=== PATIENT | female | born 1945 | race Caucasian/White ===

== ENCOUNTER 2016-09-28 10:05 | Inpatient (IN) | payer MEDICARE, BC ==
[~2016-09-28] VITALS: Ht 152.4 cm; Wt 74.0 kg
[~2016-09-28 10:05] MED LIST: ALPRAZOLAM0.25 MG PO; ALPRAZOLAM0.5 MG PO; ASPIRIN EC81 MG PO; B12-ACTIVE1 MG PO; CALCIUM 600 +600 MG PO; CIMETIDINE400 MG PO; CYANOCOBALAM1000 MC1 IM; FISH OIL1000 MG PO; HYDROCHLOROT25 MG PO; HYDROXYZ HCL25 MG OR; ISOSORB DIN10 MG PO; LIPITOR80 MG PO; LISINOP/HCTZ1 TA2 PO; LISINOPRIL20 MG PO; LORAZEPAM1 MG PO; METOPROL TAR25 MG PO; NEURONTIN300 MG PO; PLAVIX75 MG PO; PREDNISONE10 MG PO; PROLIA60 MG/ML SC; SIMVASTATIN40 MG PO; SINEQUAN10 MG OR; TRAZODONE HCL50 MG PO; TRIAMCINOLON0.11 EX
--- NOTE | 2016-09-28 10:10 | NUR ---
PT ARRIVES IN STABLE CONDITION VIA EMS FROM [facility] HOLDING PILLOW OVER SURGICAL SITE, C/O MIDSTERNAL CHEST PAIN THAT STARTED DURING PHYSICAL THERAPY THIS MORNING. DR GREEN TO BEDSIDE TO EVALUATE.
[2016-09-28] MEDS ORDERED: TYLENOL 500MG TAB PO (10:24)
[2016-09-28] MEDS ORDERED: ALDACTONE25 MG PO (10:24)
[2016-09-28] MEDS ORDERED: BISACODYL10 M1 RE (10:25)
[2016-09-28] MEDS ORDERED: [UNRECOGNIZED DRUG - CODE] PO (10:25)
[2016-09-28] MEDS ORDERED: COREG3.125 MG PO (10:25)
[2016-09-28] MEDS ORDERED: METFORMIN500 MG PO (10:26)
[2016-09-28] MEDS ORDERED: LASIX 20 MG20 MG/TAB PO (10:26)
[2016-09-28] MEDS ORDERED: ISOSORB DIN10 MG PO (10:26)
[2016-09-28] MEDS ORDERED: PLAVIX75 MG PO (10:27)
[2016-09-28] MEDS ORDERED: MILK OF MAG30 ML/UDC PO (10:27)
[2016-09-28] MEDS ORDERED: POT CHLORIDE10 ME5 PO (10:28)
[2016-09-28] MEDS ORDERED: PROTONIX40 M2 PO (10:28)
[2016-09-28] MEDS ORDERED: TRAMADOL HCL50 MG PO (10:28)
[2016-09-28 10:33] LABS: HEMATOCRIT 34.9 % (37.0-47.0); HEMOGLOBIN 11.1 g/dl (12.0-16.0); IMMATURE GRANULOCYTES 0.6 % (0.0-1.0); MEAN CELL VOLUME 83.7 fL CALC (80.0-100.0); MEAN CORPUSCULAR HGB 26.6 pG CALC (26.0-32.0); MEAN CORPUSCULAR HGB CONC 31.8 g/L CALC (32.0-36.0); NEUT# 9.93 thou/uL (2.00-7.15); RED BLOOD COUNT 4.17 mill/uL (4.20-5.60); RED CELL DISTRI WIDTH 14.3 % (11.5-15.5)
[2016-09-28 10:50] LABS: ALBUMIN 4.3 g/dL (3.2-5.0); ALKALINE PHOSPHATASE 107 u/l (38-126); AMYLASE 67 u/l (30-110); ANION GAP 19 (6-22 (CALC)); BILIRUBIN, TOTAL 0.5 mg/dL (0.0-1.4); BUN 34 mg/dL (8-23); BUN/CREATININE RATIO 39 (12-20 (CALC)); CALCIUM 9.7 mg/dL (8.4-10.2); CARBON DIOXIDE 25 mmol/l (22-30); CHLORIDE 98 mmol/l (95-108); CREATININE 0.9 mg/dL (0.5-1.0); GFR > 60 ML/MIN (>=60 (CALC)); GFR FOR AFR.AMER. > 60 ML/MIN (>=60 (CALC)); GLUCOSE 129 mg/dL (82-115); LIPASE 64 u/l (23-300); POTASSIUM 4.6 mmol/l (3.5-5.1); SGOT/AST 26 u/l (9-36); SGPT/ALT 24 u/l (11-66); SODIUM 137 mmol/l (137-146); TOTAL PROTEIN 7.8 g/dL (6.3-8.2)
[2016-09-28 11:01] LABS: PROTHROMBIN TIME 10.7 SECONDS (9.0-12.5)
[2016-09-28 11:02] LABS: MYOGLOBIN 26 ng/mL (0 - 62)
--- NOTE | 2016-09-28 11:30 | NUR ---
PT RESTING ONS STRETCHER, HOLDING PILLOW ON SURGICAL SITE. DENIES PAIN AT THIS TIME. FAMILY AT BEDSIDE, CALL LIGHT IN REACH.
--- NOTE | 2016-09-28 12:30 | NUR ---
PT RESTING ON STRETCHER, STATES, "I FEEL MUCH BETTER NOW THAN WHEN I CAME IN"
--- NOTE | 2016-09-28 14:09 | NUR ---
SECOND TROPONIN OBTAINED ORDERED.
--- NOTE | 2016-09-28 15:45 | NUR ---
PT RESTING ON STRETCHER, ADJUSTED POSITION PER REQUEST FOR COMFORT. PT ADVISED TO EXTENDED WAIT TIME ON LAB RESULTS. VERBALZIES UNDERSTANDING. CALL LIGHT IN REACH.
--- NOTE | 2016-09-28 16:30 | NUR ---
PT DENIES COMPLAINTS. CALL LIGHT IN REACH.
--- NOTE | 2016-09-28 17:00 | NUR ---
REPORT PROVIDED TO CARMEN ANDERSON. TRANSFER PENDING BUSY ER.
--- NOTE | 2016-09-28 17:35 | NUR ---
PT ARRIVED VIA STRETCHER AND ONE PERSON ASSISTANCE FROM THE ER. PT AMBULATORY TO SCALE AND BS CHAIR. PT VSS ARE HYPOTENSIVE, MD ON UNIT AND NOTIFIED, NITRO PATCH REMOVED. ASSESSMENT AND HISTORY PERFORMED. BELONGINGS GONE OVER, FALL CONTRACT SIGNED. CALL LIGHT WITHIN REACH. RIGHTS, RESPONSIBILITIES GONE OVER.
--- NOTE | 2016-09-28 17:40 | NUR ---
PT TRANSFERRED TO ICU IN STABLE CONDITION VIA STRETCHER.
[2016-09-28 17:45] VITALS: BP 82/62
[2016-09-28 18:00] VITALS: BP 118/70
--- NOTE | 2016-09-28 18:50 | NUR ---
RECEIVED REPORT FROM AMBAR HAMLIN RN. ASSUMED PT CARE. INTRODUCED TO PT, C/O DULL PAIN IN UPPER BACK AND BILAT SHOULDER BLADES; IS REQUESTING XANAX; WILL MEDICATE PER DR ORDERS. CALL PATE IS WITHIN REACH.
[2016-09-28 20:00] VITALS: BP 92/51
[2016-09-28 21:00] VITALS: BP 93/51
--- NOTE | 2016-09-28 21:08 | NUR ---
PT RESTING IN BED WATCHING TV; DENIES PAIN OR NEEDS AT THIS TIME; RESP ARE EVEN AND UNLABORED; ACCU CHECK 108; SLIGHTLY HYPOTENSIVE; HR 81, AFEBRILE; IVF INFUSING AT RX @ 60 ML/HR WITHOUT DIFFICULTY; CALL PATE WITHIN REACH WILL CONTINUE TO MONITOR.
--- NOTE | 2016-09-28 21:59 | NUR ---
TEST DECK SUPERVISOR IN PT ROOM DRAWING TROPONIN BLOOD SAMPLE. PT DENIES ANY NEEDS OR PAIN STATES "I FEEL COMFORTABLE NOW."
[2016-09-29] VITALS (12 sets, daily range): BP systolic 71–146; BP diastolic 42–67
--- NOTE | 2016-09-29 00:22 | NUR ---
PT IS RESTING IN BED WITH EYES CLOSED; ALERT AND ORIENTED X3; DENIES PAIN OR NEEDS AT THIS TIME; VOICES NO COMPLAINTS; AFEBRILE; BP 89/49 AT THIS TIME; SKIN IS WARM AND DRY; DENIES DIZZINESS OR LIGHTHEADEDNESS; CALL PATE WITHIN REACH, WILL CONTINUE TO MONITOR.
--- NOTE | 2016-09-29 01:00 | NUR ---
RT IN PT ROOM FOR ECG.
--- NOTE | 2016-09-29 02:05 | NUR ---
PT APPEARS TO BE SLEEPING WITH EYES CLOSED; VOICES NO COMPLAINTS; RESP ARE EVEN AND UNLABORED; SKIN IS WARM AND DRY; AFEBRILE; BP 83/44 AT THIS TIME; CALL PATE IS WITHIN REACH; WILL CONTINUE TO MONITOR.
--- NOTE | 2016-09-29 04:10 | NUR ---
ASSISTED PT OOB TO BSC; VOIDED 300 ML OF CLEAR YELLOW URINE; PT TOLERATED ACTIVITY WELL; DENIES ANY PAIN, DIZZINESS/HEADEDNESS AT THIS TIME; AFEBRILE; BP 71/47, ELEVATED BED AT FEET; RESP EVEN AND UNLABORED; DENIES OTHER NEEDS; CALL PATE IS WITHIN REACH.
[2016-09-29 04:39] LABS: HEMATOCRIT 33.2 % (37.0-47.0); HEMOGLOBIN 10.4 g/dl (12.0-16.0); IMMATURE GRANULOCYTES 0.4 % (0.0-1.0); MEAN CELL VOLUME 83.6 fL CALC (80.0-100.0); MEAN CORPUSCULAR HGB 26.2 pG CALC (26.0-32.0); MEAN CORPUSCULAR HGB CONC 31.3 g/L CALC (32.0-36.0); NEUT# 5.45 thou/uL (2.00-7.15); RED BLOOD COUNT 3.97 mill/uL (4.20-5.60); RED CELL DISTRI WIDTH 14.1 % (11.5-15.5)
[2016-09-29 04:56] LABS: ALBUMIN 3.9 g/dL (3.2-5.0); ALKALINE PHOSPHATASE 94 u/l (38-126); ANION GAP 14 (6-22 (CALC)); BILIRUBIN, TOTAL 0.3 mg/dL (0.0-1.4); BUN 34 mg/dL (8-23); BUN/CREATININE RATIO 38 (12-20 (CALC)); CALCIUM 8.9 mg/dL (8.4-10.2); CALCULATED LDLCHOLESTEROL 64 mg/dL (62-129 (CALC)); CARBON DIOXIDE 28 mmol/l (22-30); CHLORIDE 100 mmol/l (95-108); CREATININE 0.9 mg/dL (0.5-1.0); GFR > 60 ML/MIN (>=60 (CALC)); GFR FOR AFR.AMER. > 60 ML/MIN (>=60 (CALC)); GLUCOSE 95 mg/dL (82-115); HDL CHOLESTEROL 35 mg/dL (>=40); POTASSIUM 4.6 mmol/l (3.5-5.1); SGOT/AST 29 u/l (9-36); SGPT/ALT 25 u/l (11-66); SODIUM 138 mmol/l (137-146); TOTAL CHOLESTEROL 130 mg/dl (0-199); TOTAL PROTEIN 7.1 g/dL (6.3-8.2); TOTAL TRIGLYCERIDES 155 mg/dl (30-149); VLDL CHOLESTROL 31 mg/dl (0-48 (CALC))
--- NOTE | 2016-09-29 05:15 | NUR ---
NOTIFIED DR. NICHOLS ABOUT PT ELEVATED TROPONIN; ADVICED TO HOLD THE ALDACTONE; LASIX, NITROPATCH AND COREG.
[2016-09-29 06:42] LABS: URINE BILIRUBIN - DIPSTICK NEGATIVE (NEGATIVE); URINE BLOOD DIPSTICK NEGATIVE (NEGATIVE); URINE CLARITY SLIGHT CLOUDY; URINE COLOR YELLOW; URINE GLUCOSE - DIPSTICK NEGATIVE (NEGATIVE); URINE KETONE NEGATIVE (NEGATIVE); URINE LEUK ESTERASE NEGATIVE (NEGATIVE); URINE NITRITE - DIPSTICK NEGATIVE (Negative); URINE PH 5.5 (4.5-8.0); URINE PROTEIN - DIPSTICK NEGATIVE (NEG-TRACE); URINE UROBILINOGEN - DIPSTICK 0.2 E.U./dL (0.2)
--- NOTE | 2016-09-29 07:15 | NUR ---
PT ALERT AND ORIENTED RESTING IN BED, HAD CXR DONE THIS AM, AM ASSESSMENT COMPLETED SEE INTERVENTIONS, PT HAS HEART PILLOW FROM PREVIOUS SURGERY AT BEDSIDE FOR SUPPORT WITH COUGH, MIDLINE STERNAL INCISION INTACT, WELL APPROXIMATED AND WELL HEALING WITH NO S/S OF INFECTION NOTED, LUNGS ARE CLEAR WITH NO SOB OR DISTRESS NOTED, PULSE OX 98% ON ROOM AIR, SAFETY MEASURES REINFORCED, NO COMPLAINTS OF PAIN, CALL PATE WIHTINR EACH, ENCOURAGED TO CALL FOR ANY NEEDED ASSISTANCE.
--- NOTE | 2016-09-29 07:35 | NUR ---
SET UP ASSIST PROVIDED FOR AM MEAL, BILATERAL LE ELEVATED ON PILLOWS PER VERBAL ORDERED , PT REMAINS ASYMPTOMATICALLY HYPOTENSIVE, IVF CONTINUE AT PRESCRIBED RATE, WILL CONTINUE TO MONITOR.
--- NOTE | 2016-09-29 09:15 | NUR ---
pt oob to bsc with stand by assist and toelrated activity well and provides own jasmeet care, back to bed with same assist, call agee within reach, will continue to monitor.
--- NOTE | 2016-09-29 10:35 | NUR ---
PT OOB TO BSC WITH STAND BY ASSIST, TOLERATES ACTIVITY WELL, CONTINENT OF URINE WITHOUT INCIDENT AND PROVIDES FANTA CARE INDEPENDENTLY, BACK TO BED AND REPOSITIONED FOR COMFORT, CALL PATE WITHIN REACH, WILL CONTINUE TO MONITOR.
--- NOTE | 2016-09-29 12:00 | NUR ---
PT ASSISTED OOB TO BSC, CONTINENT OF URINE, PROVIDES OWN FANTA CARE THEN INTO RECLINER AT BEDSIDE FOR AFTERNOON MEAL, PT TOLERATES ACTIVITY WELL WITH NO SOB OR DISTRESS NOTED, CALL PATE WITHIN REACH, WILL CONTINUE TO MONITOR.
--- NOTE | 2016-09-29 13:27 | NUR ---
PT UP TO BSC, CONTINENTN OF URINE AND SCANT BM, PT PROVIDED OWN FANTA CARE, BACK TO RECLINER AT BEDSIDE, CALL PATE WITHIN REACH, BP REMAINS IMPROVED, WILL CONTINUE TO MONITOR.
--- NOTE | 2016-09-29 13:55 | NUR ---
PT AMBULATED IN HALLWAY WITH STEADY GAIT, BACKT O BED AT THIS TIME, TOELRATED ACTIVITY WELL, CALL PATE WITHIN REACH, WILL CONTINUE TO MONITOR.
--- NOTE | 2016-09-29 15:07 | NUR ---
PT OOB TO BSC WITH STAND BY ASSIST, CALL PATE WITHIN REACH
--- NOTE | 2016-09-29 15:14 | NUR ---
PT AMBULATED AGAINA IN HALLWAYS, TOLERATED ACTIVIYT WELL, BACK TO BED TOLERATED ACTIVITY WELL, CALL PATE WITHIN REACH, WILL CONTINUE TO MONITOR.
--- NOTE | 2016-09-29 15:40 | NUR ---
PT TO ULATRASOUND VIA FOR ECHO ORDERED, PT AMBULATED AOUT OF ROOM TO WHEELCHAIR.
--- NOTE | 2016-09-29 16:53 | NUR ---
PT BACK FROM RADIOLOGY EARLIER AND CURRENTLY SITTING UP IN CHAIR AT BEDSIDE, AWAITING PM MEAL, TOLERATES ACTIVITY WELL CALL PATE WITHIN REACH, WILL CONTINUE TO MONITOR.
--- NOTE | 2016-09-29 18:20 | NUR ---
PT BACK TO BED ATE MINIMAL AMOUNT OF PM MEAL, IVF STOPPED PER VERBAL ORDER , POSITIONED FOR COMFORT CALL [facility], WILL CONTINUE TO MONITOR.
--- NOTE | 2016-09-29 19:10 | NUR ---
awake. no acute distress. power supply engineer shows sinus rhythm ivcd pvcs. healing chest incision. steristrips intact. #20 rac saline lock. po fluids taken well. voids per bsc. fall precautions cont.
--- NOTE | 2016-09-29 19:15 | NUR ---
percocet 5 & xanax 0.5mg po per request for pain @ anxiety.
--- NOTE | 2016-09-29 19:30 | NUR ---
requested to bathe self. am care given per self.
--- NOTE | 2016-09-29 19:50 | NUR ---
amb x1 assist to hallway. walked residential [facility] floor. talked CONSTANTLY. no sob. assisted to bed.
--- NOTE | 2016-09-29 22:00 | NUR ---
eyes closed. no distress. material requirements planning manager shows sinus rhythm ivcd.
--- NOTE | 2016-09-30 00:05 | NUR ---
eyes closed. no apparent distress. monitor shows sinus rhythm ivcd.
[2016-09-30 00:15] VITALS: BP 90/52
--- NOTE | 2016-09-30 01:30 | NUR ---
up to bsc. kevin well. denies chest pain.
[2016-09-30 02:00] VITALS: BP 95/45
--- NOTE | 2016-09-30 04:00 | NUR ---
awake. denies c/o. to xray per wc for 2v cxr.
--- NOTE | 2016-09-30 04:10 | NUR ---
returned from [employer].
[2016-09-30 04:15] VITALS: BP 103/53
--- NOTE | 2016-09-30 04:15 | NUR ---
lab here. blood drawn.
[2016-09-30 05:07] LABS: HEMATOCRIT 36.2 % (37.0-47.0); HEMOGLOBIN 11.1 g/dl (12.0-16.0); IMMATURE GRANULOCYTES 0.5 % (0.0-1.0); MEAN CELL VOLUME 84.4 fL CALC (80.0-100.0); MEAN CORPUSCULAR HGB 25.9 pG CALC (26.0-32.0); MEAN CORPUSCULAR HGB CONC 30.7 g/L CALC (32.0-36.0); NEUT# 8.2 thou/uL (2.00-7.15); RED BLOOD COUNT 4.29 mill/uL (4.20-5.60)
--- NOTE | 2016-09-30 05:10 | NUR ---
up to [facility]. voided well. denies c/o.
--- NOTE | 2016-09-30 05:30 | NUR ---
rt here. ekg obtained.
--- NOTE | 2016-09-30 06:00 | NUR ---
lab here. blood redrawn.
[2016-09-30 06:18] LABS: ANION GAP 16 (6-22 (CALC)); BUN 18 mg/dL (8-23); BUN/CREATININE RATIO 26 (12-20 (CALC)); CALCIUM 8.9 mg/dL (8.4-10.2); CARBON DIOXIDE 23 mmol/l (22-30); CHLORIDE 103 mmol/l (95-108); CREATININE 0.7 mg/dL (0.5-1.0); GFR > 60 ML/MIN (>=60 (CALC)); GFR FOR AFR.AMER. > 60 ML/MIN (>=60 (CALC)); GLUCOSE 87 mg/dL (82-115); SODIUM 138 mmol/l (137-146)
--- NOTE | 2016-09-30 07:00 | NUR ---
PT A/O X3 DENIES PAIN; ACCU CHECK 80; CALL PATE WITHIN REACH; WILL CONTINUE TO MONITOR.
--- NOTE | 2016-09-30 07:40 | NUR ---
PT ASSISTED TO CHAIR AND ASSISTED WITH BREAKFAST SET UP; DENIES PAIN; CALL PATE WITHIN REACH; WILL CONTINUE TO MONITOR.
[2016-09-30 08:00] VITALS: BP 134/59
[2016-09-30] MEDS ORDERED: LIPITOR80 MG PO (08:35)
[2016-09-30] MEDS ORDERED: ISOSORB DIN10 MG PO (08:35)
[2016-09-30] MEDS ORDERED: PLAVIX75 MG PO (08:35)
[2016-09-30] MEDS ORDERED: COREG3.125 MG PO (08:35)
[2016-09-30] MEDS ORDERED: ALPRAZOLAM0.25 MG PO (08:36)
[2016-09-30] MEDS ORDERED: TYLENOL 500MG TAB PO (08:36)
[2016-09-30] MEDS ORDERED: ASPIRIN EC81 MG PO (08:36)
[2016-09-30] MEDS ORDERED: TRAMADOL HCL50 MG PO (08:36)
[2016-09-30] MEDS ORDERED: CALCIUM 600 +600 MG PO (08:37)
[2016-09-30] MEDS ORDERED: LASIX 20 MG20 MG/TAB PO (08:37)
[2016-09-30] MEDS ORDERED: METFORMIN500 MG PO (08:38)
[2016-09-30] MEDS ORDERED: PROTONIX40 M2 PO (08:38)
[2016-09-30] MEDS ORDERED: BISACODYL10 M1 RE (08:38)
[2016-09-30] MEDS ORDERED: [UNRECOGNIZED DRUG - CODE] PO (08:38)
--- NOTE | 2016-09-30 09:13 | NUR ---
DR. NICHOLS IN TO SEE PT; PLAN OF CARE DISCUSSED
--- NOTE | 2016-09-30 10:00 | NUR ---
PT SITTING ON SIDE OF BED; MEDICATED FOR C/O LOWER BACK PAIN 5/10 AND ANXIETY; CALL PATE WITHIN REACH; WILL CONTINUE TO MONITOR.
--- NOTE | 2016-09-30 12:15 | NUR ---
Discharge instructions given. Patient verbalizes understanding of same. Discharged in stable condition via Wheelchair to [facility] with staff. All belongings sent with pt.
== END 2016-09-30 12:15 | DRG 313 ==
LOC: ENPENDDIS → ED 10:05 → ED-I 16:09 → ED 16:23 → ICU 16:24
PROVIDERS: Emergency Medicine; ADMIT Internal Medicine Geriatric Medicine; ATTEND Internal Medicine Geriatric Medicine
DX: R07.89 Other chest pain (principal); I25.10 Atherosclerotic heart disease of native coronary artery without angina pectoris; I11.0 Hypertensive heart disease with heart failure; I50.9 Heart failure, unspecified; J44.9 Chronic obstructive pulmonary disease, unspecified; E78.5 Hyperlipidemia, unspecified; F41.9 Anxiety disorder, unspecified; F17.210 Nicotine dependence, cigarettes, uncomplicated; M19.90 Unspecified osteoarthritis, unspecified site; E11.9 Type 2 diabetes mellitus without complications; I44.7 Left bundle-branch block, unspecified; R74.8 Abnormal levels of other serum enzymes; Z95.5 Presence of coronary angioplasty implant and graft; Z95.1 Presence of aortocoronary bypass graft

== ENCOUNTER → 2018-08-29 | Outpatient (REF) | payer MEDICARE, BC ==
[~2018-08-29] MED LIST changes: +ALDACTONE25 MG PO; +BISACODYL10 M1 RE; +COREG3.125 MG PO; +LASIX 20 MG20 MG/TAB PO; +METFORMIN500 MG PO; +MILK OF MAG30 ML/UDC PO; +POT CHLORIDE10 ME5 PO; +PROTONIX40 M2 PO; +TRAMADOL HCL50 MG PO; +TYLENOL 500MG TAB PO; +[UNRECOGNIZED DRUG - CODE] PO
[2018-08-29 15:05] LABS: ALBUMIN 3.9 g/dL (3.2-5.0); ALKALINE PHOSPHATASE 54 u/l (38-126); ANION GAP 14 (6-22 (CALC)); BILIRUBIN, TOTAL 0.3 mg/dL (0.0-1.4); BUN 18 mg/dL (8-23); BUN/CREATININE RATIO 24 (12-20 (CALC)); CARBON DIOXIDE 27 mmol/l (22-30); CHLORIDE 105 mmol/l (95-108); CREATININE 0.8 mg/dL (0.5-1.0); GFR > 60 ML/MIN (>=60 (CALC)); GFR FOR AFR.AMER. > 60 ML/MIN (>=60 (CALC)); POTASSIUM 4.4 mmol/l (3.5-5.1); SGOT/AST 26 u/l (9-36); SODIUM 143 mmol/l (137-146); TOTAL PROTEIN 6.6 g/dL (6.3-8.2)
== END | disposition home or self-care (01) ==
LOC: LAB 12:56
PROVIDERS: ATTEND Nurse Practitioner Family
DX: R74.0 Nonspecific elevation of levels of transaminase and lactic acid dehydrogenase [LDH] (principal)

== ENCOUNTER 2019-02-16 08:37 | Day surgery (SDC) | payer MEDICARE, BC ==
[~2019-02-16 08:37] MED LIST changes: +ATORVASTATIN CA80 MG PO; +CARVEDILOL3.125 MG PO; +CLOPIDOGREL75 MG PO; +ISORDIL10 MG PO; +LASIX20 MG PO; +SG ASA LOW81 M1 PO; +TIZANIDINE HCL2 MG PO
[2019-02-16 11:35] VITALS: BP 138/72
== END 2019-02-16 12:05 | disposition home or self-care (01) ==
LOC: ENDO 08:37 → ORM 09:35 → ENDO 10:30 → ORM 19:45
PROVIDERS: ATTEND Internal Medicine Gastroenterology
PROC: 0DBP8ZX Excision of Rectum, Via Natural or Artificial Opening Endoscopic, Diagnostic (ICD-10-PCS; principal; 2019-02-16)
PROC: 0DBN8ZX Excision of Sigmoid Colon, Via Natural or Artificial Opening Endoscopic, Diagnostic (ICD-10-PCS; 2019-02-16)
PROC: 0DB58ZX Excision of Esophagus, Via Natural or Artificial Opening Endoscopic, Diagnostic (ICD-10-PCS; 2019-02-16)
PROC: 0DB78ZX Excision of Stomach, Pylorus, Via Natural or Artificial Opening Endoscopic, Diagnostic (ICD-10-PCS; 2019-02-16)
DX: D12.5 Benign neoplasm of sigmoid colon (principal); D12.8 Benign neoplasm of rectum; K64.4 Residual hemorrhoidal skin tags; K64.8 Other hemorrhoids; K57.30 Diverticulosis of large intestine without perforation or abscess without bleeding; K59.09 Other constipation; K22.70 Barrett's esophagus without dysplasia; K29.50 Unspecified chronic gastritis without bleeding; K25.9 Gastric ulcer, unspecified as acute or chronic, without hemorrhage or perforation; B96.81 Helicobacter pylori [H. pylori] as the cause of diseases classified elsewhere; K21.0 Gastro-esophageal reflux disease with esophagitis; K44.9 Diaphragmatic hernia without obstruction or gangrene; Q40.8 Other specified congenital malformations of upper alimentary tract; I10 Essential (primary) hypertension; I25.10 Atherosclerotic heart disease of native coronary artery without angina pectoris; I25.2 Old myocardial infarction; Z95.1 Presence of aortocoronary bypass graft; Z95.5 Presence of coronary angioplasty implant and graft; Z86.010 Personal history of colon polyps

== ENCOUNTER 2021-03-18 18:07 | Emergency (ER) | payer MEDICARE, BC ==
[~2021-03-18] VITALS: Ht 152.4 cm; Wt 54.0 kg
[2021-03-18 20:38] LABS: HEMATOCRIT 36.8 % (37.0-47.0); HEMOGLOBIN 11.9 g/dl (12.0-16.0); IMMATURE GRANULOCYTES 0.5 % (0.0-5.0); MEAN CELL VOLUME 85.2 fL CALC (80.0-100.0); MEAN CORPUSCULAR HGB 27.5 pG CALC (26.0-32.0); MEAN CORPUSCULAR HGB CONC 32.3 g/dL CAL (32.0-36.0); NEUT# 3.89 thou/uL (2.00-7.15); RED BLOOD COUNT 4.32 mill/uL (4.20-5.60); RED CELL DISTRI WIDTH 16.6 % (11.5-15.5)
[2021-03-18 20:57] LABS: D-DIMER 0.35 mg/L (0.19-0.60)
[2021-03-18 20:57] LABS: ALBUMIN 3.9 g/dL (3.2-5.0); BILIRUBIN, TOTAL 0.4 mg/dL (0.0-1.4); CREATININE 1.3 mg/dL (0.5-1.0); MAGNESIUM 1.9 mg/dL (1.6-2.3); POTASSIUM 3.3 mmol/l (3.5-5.1); TOTAL PROTEIN 6.8 g/dL (6.3-8.2)
[2021-03-18 21:11] LABS: PROTHROMBIN TIME 10.7 SECONDS (9.0-12.5)
[2021-03-18 21:27] LABS: TSH, 3RD GENERATION 0.75 uIU/mL (0.47 - 4.68)
[2021-03-18 23:03] LABS: URINE BILIRUBIN - DIPSTICK NEGATIVE (NEGATIVE); URINE BLOOD DIPSTICK NEGATIVE (NEGATIVE); URINE COLOR YELLOW; URINE GLUCOSE - DIPSTICK NEGATIVE (NEGATIVE); URINE KETONE TRACE mg/dL (NEGATIVE); URINE LEUK ESTERASE NEGATIVE (NEGATIVE); URINE PROTEIN - DIPSTICK NEGATIVE (NEG-TRACE); URINE SPECIFIC GRAVITY 1.015; URINE UROBILINOGEN - DIPSTICK 0.2 E.U./dL (0.2)
[2021-03-18 23:05] LABS: URINE NITRITE - DIPSTICK NEGATIVE (Negative)
[2021-03-18 23:30] VITALS: BP 104/55
== END 2021-03-18 23:35 | disposition home or self-care (01) ==
LOC: ED 18:07
PROVIDERS: Family Medicine
DX: E86.0 Dehydration (principal); I10 Essential (primary) hypertension; F17.200 Nicotine dependence, unspecified, uncomplicated; Z20.822 Contact with and (suspected) exposure to COVID-19